=== PATIENT | male | born 1940 | race Caucasian/White ===

== ENCOUNTER 2017-05-04 11:12 | Day surgery (SDC) | payer MEDICARE, OTHER ==
[~2017-05-04] VITALS: Ht 172.7 cm; Wt 78.4 kg
[~2017-05-04 11:12] MED LIST: AEROBID INHALER7 GM IH; ALBUTEROL0.09 MG/A1 IH; ASMANEX TW0.22 MG/A1 IH; ASTELIN NASAL S34 ML NS; CIPRO 250MG TA250 MG PO; CLINDAMYCIN HC300 MG PO; DIFLUCAN PO; DOXYCYCLINE 10100 MG PO; DUONEB 3 MG/3 ML3 ML IH; IBUPROFEN 200200 MG PO; IBUPROFEN200 MG PO; IPRATROPIUM BROM3 M1 IH; KLONOPIN 0.5MG0.5 MG PO; LUTEIN PO; MVI; NASONEX SPRAY NS; NASONEX SPRAY17 GM NS; NATURE'S BLE1000 MCG PO; ONE DAILY1 TA1 PO; OXYGEN; PRILOSEC 20MG20 MG PO; RELION VEN0.09 MG/Ac IH; SEREVENT INH; SPIRIVA HANDIH18 MCG IH; THEOCAP200 MG PO; VITAMIN C1 TAB PO; VITAMIN E800 I1 PO; ZANTAC 7575 MG PO; ZESTRIL 10MG10 MG PO; ZITHROMAX 250M250 MG PO; ZOCOR40 MG PO; ZYRTEC 10MG10 MG PO; ZYRTEC ALLERGY10 MG PO; [UNRECOGNIZED DRUG - OTHER] INH; astelin; lutein
[2017-05-04] MEDS ORDERED: STIOLTO RESPIMAT4 GM IH (12:10)
[2017-05-04] MEDS ORDERED: IPRATROPIUM BROM3 M1 IH (12:14)
[2017-05-04] MEDS ORDERED: ZOCOR 40MG40 MG PO (12:17)
[2017-05-04] MEDS ORDERED: ALBUTEROL SULFAT3 M3 IH (12:19)
[2017-05-04] MEDS ORDERED: IBU600 MG PO (12:19)
[2017-05-04] MEDS ORDERED: PRILOSEC 20MG20 MG PO (12:20)
[2017-05-04] MEDS ORDERED: THEO-DUR 2200 MG/TAB PO (12:22)
[2017-05-04] MEDS ORDERED: ZYRTEC 10MG10 MG PO (12:22)
[2017-05-04] MEDS ORDERED: ZESTRIL 10MG10 MG PO (12:24)
[2017-05-04] MEDS ORDERED: ZITHROMAX 250M250 MG PO (12:24)
[2017-05-04] MEDS ORDERED: ASMANEX TW110 MCG/Ac IH (12:30)
[2017-05-04] MEDS ORDERED: KLONOPIN 0.5MG0.5 MG PO (12:31)
[2017-05-04] MEDS ORDERED: WELLBUTRIN 75MG75 MG PO (12:33)
[2017-05-04] MEDS ORDERED: XALATAN EYE DROPS OU (12:34)
[2017-05-04] MEDS ORDERED: ONE DAILY1 TA1 PO (12:34)
[2017-05-04] MEDS ORDERED: LUTEIN6 MG (12:35)
[2017-05-04] MEDS ORDERED: NATURE'S BLE1000 MCG PO (12:36)
[2017-05-04 13:01] VITALS: BP 112/81; PULSE 67; TEMP 97.5
[2017-05-04 13:15] VITALS: BP 117/55; PULSE 77; TEMP 97.3
[2017-05-04 13:30] VITALS: BP 127/65; PULSE 76
[2017-05-04 13:45] VITALS: BP 125/70; PULSE 76
[2017-05-04 14:00] VITALS: BP 101/62; PULSE 91
[2017-05-04 17:09] VITALS: BP 152/109; PULSE 73
== END 2017-05-04 14:31 | disposition home or self-care (01) ==
LOC: SDCO 11:12
DX: J18.9 Pneumonia, unspecified organism (principal); J44.1 Chronic obstructive pulmonary disease with (acute) exacerbation; G47.33 Obstructive sleep apnea (adult) (pediatric); I10 Essential (primary) hypertension; K21.9 Gastro-esophageal reflux disease without esophagitis; Z87.09 Personal history of other diseases of the respiratory system; Z87.891 Personal history of nicotine dependence
CPT/HCPCS: J0456; J2704; J2920; J7050; J7120

== ENCOUNTER → 2019-02-15 | Outpatient (CLI) | payer MEDICARE, OTHER ==
[~2019-02-15] MED LIST changes: +ALBUTEROL SULFAT3 M3 IH; +ASMANEX TW110 MCG/Ac IH; +IBU600 MG PO; +LUTEIN6 MG; +STIOLTO RESPIMAT4 GM IH; +THEO-DUR 2200 MG/TAB PO; +WELLBUTRIN 75MG75 MG PO; +XALATAN EYE DROPS OU; +ZOCOR 40MG40 MG PO
== END ==
LOC: COL.VAS 08:29
DX: I65.23 Occlusion and stenosis of bilateral carotid arteries (principal); N18.3 Chronic kidney disease, stage 3 (moderate)

== ENCOUNTER 2020-07-25 07:30 | Observation (INO) | payer MEDICARE, OTHER ==
[~2020-07-25] VITALS: Wt 77.3 kg
[~2020-07-25 07:30] MED LIST changes: -WELLBUTRIN 75MG75 MG PO; +WELLBUTRIN SR150 M1 PO
--- NOTE | 2020-07-25 19:00 | NUR ---
PATIENT ADMITTED TO ROOM 348 VIA EMS.
[2020-07-25 19:11] VITALS: BP 122/59; PULSE 109; TEMP 97.8
[2020-07-25] MEDS ORDERED: ELIQUIS 2.5 PO (20:44)
[2020-07-25] MEDS ORDERED: TYLENOL 500MG500 MG PO (20:45)
[2020-07-25] MEDS ORDERED: ATIVAN 0.50.5 MG/TAB PO (20:47)
[2020-07-25] MEDS ORDERED: CARDIZEM CD 12120 MG PO (20:49)
[2020-07-25] MEDS ORDERED: ATROVENT NASAL15 ML NS (20:50)
[2020-07-25] MEDS ORDERED: MULTAQ400 MG PO (20:51)
[2020-07-25] MEDS ORDERED: DALIRESP500 MCG PO (20:52)
[2020-07-25] MEDS ORDERED: FLOMAX 0.40.4 MG/CAP PO (20:55)
[2020-07-25] MEDS ORDERED: TRELEGY ELLIPT1 EACH IH (20:55)
[2020-07-25] MEDS ORDERED: VELTASSA8.4 GM PO (20:57)
[2020-07-25] MEDS ORDERED: ZOCOR 10MG10 MG PO (20:57)
[2020-07-25 23:45] VITALS: BP 115/53; PULSE 92; TEMP 97.6
[2020-07-26] VITALS (10 sets, daily range): BP systolic 134–166; BP diastolic 52–77; PULSE 65–104; TEMP 97.4–98.7
--- NOTE | 2020-07-26 00:30 | NUR ---
PATIENT RESTING QUIETLY WITH NO REPORTED C/O. BED ALARM ON AT THIS TIME, WILL REASSESS FALL RISK AGAIN PRIOR TO DAY SHIFT.
--- NOTE | 2020-07-26 03:56 | NUR ---
PATIENT ARRIVED TO ROOM 343 VIA EMS CART WALKED FROM EMS CART TO HOSPITAL BED WITH NO PROBLEMS. IVF TO LAC INFUSING WITH NO PROBLEMS, REPORTS HAS DRY MOUTH. REPORTS HAS BEEN TOLERATING DILAUDID.
--- NOTE | 2020-07-26 06:50 | NUR ---
PATIENT TO OR PER BED, O2 CONTINUES PER NC. PATIENT WITH NO C/O
--- NOTE | 2020-07-26 08:34 | NUR ---
Patient returns from procedure at this time.
--- NOTE | 2020-07-26 09:30 | NUR ---
Patient alert and oriented, answers questions appropriately. See assessment. No c/o urinary burning, frequency or hesitancy. No other c/o at this time.
--- NOTE | 2020-07-26 09:37 | NUR ---
SW met with the patient to discuss discharge plan. The patient lives alone in [place]. He states that his son, Kar (ph#[phone]), [place]. He reports independence with ADLs and does not have any assistive devices. He has continuous home oxygen from [employer]. The patient's PCP is Dr. Chralie Dhaliwal and he receives his medications through [facility] [facility]. He reports no difficulties obtaining his meds. The patient does not have advanced directives in EMR, but he states that he does have a DPOA-HC completed and that the forms are at home. He states that his son, Kar, is his DPOA-HC. He states that he has one other child, but does not know where that child is at. The patient plans to return home upon discharge, with Kar providing transportation. No additional needs at this time.
--- NOTE | 2020-07-26 15:26 | NUR ---
Discharge instructions reviewed with patient, verbalized understanding. Discharged via wheelchair to auto/home with family at 1415.
== END 2020-07-26 14:15 | disposition home or self-care (01) ==
LOC: SURG 07:30 → EDSTATUS 07:30 → SURG 19:00
PROVIDERS: ADMIT Urology
DX: R10.9 Unspecified abdominal pain (principal); I12.9 Hypertensive chronic kidney disease with stage 1 through stage 4 chronic kidney disease, or unspecified chronic kidney disease; N18.9 Chronic kidney disease, unspecified; E78.5 Hyperlipidemia, unspecified; J44.9 Chronic obstructive pulmonary disease, unspecified; G89.29 Other chronic pain; K21.9 Gastro-esophageal reflux disease without esophagitis; M51.36 Other intervertebral disc degeneration, lumbar region; M47.9 Spondylosis, unspecified; M48.02 Spinal stenosis, cervical region; Z87.442 Personal history of urinary calculi; Z88.1 Allergy status to other antibiotic agents; Z88.0 Allergy status to penicillin; Z79.01 Long term (current) use of anticoagulants; Z79.899 Other long term (current) drug therapy; Z98.52 Vasectomy status; Z90.49 Acquired absence of other specified parts of digestive tract
CPT/HCPCS: C1769; C2617; G0378; J0690; J1885; J2704; J3010; J7030; Q9967

== ENCOUNTER 2020-11-08 18:30 | Inpatient (IN) | payer MEDICARE, OTHER ==
[~2020-11-08] VITALS: Ht 172.7 cm; Wt 81.6 kg
[~2020-11-08 18:30] MED LIST changes: +ATIVAN 0.50.5 MG/TAB PO; +ATROVENT NASAL15 ML NS; +CARDIZEM CD 12120 MG PO; +DALIRESP500 MCG PO; +ELIQUIS 2.5 PO; +FLOMAX 0.40.4 MG/CAP PO; +MULTAQ400 MG PO; +TRELEGY ELLIPT1 EACH IH; +TYLENOL 500MG500 MG PO; +VELTASSA8.4 GM PO; +ZOCOR 10MG10 MG PO
[2020-11-08 18:56] LABS: BASO % 0.2 % (0.0-2.0); GRAN % 82.3 % (42.2-75.2); HEMATOCRIT 47.8 % (42.0-52.0); HEMOGLOBIN 15.6 g/dl (13.5-18.0); LYMPH # 0.9 (1.2-3.4); LYMPH % 9.1 % (20.0-51.0); MEAN CELL VOLUME 94 fl (80.0-100.0); MEAN CORPUSCULAR HEMOGLOBIN 31 pg (27.0-31.0); MEAN CORPUSCULAR HGB CONC 33 g/dl (33.0-37.0); MEAN PLATELET VOLUME 9.7 fl (7.4-10.4); MONO # 0.8 (0.1-0.6); PLATELET COUNT 136 K/mm3 (130-400); RED BLOOD COUNT 5.07 M/mm3 (4.20-5.60); REDCELL DISTRIBUTION WIDTH-CV 13.5 % (11.5-14.5)
[2020-11-08 18:57] LABS: INR 1.2 (0.8-3.0); PROTHROMBIN TIME 13.1 SECONDS (9.7-12.8)
[2020-11-08 19:14] LABS: ALBUMIN 3.9 gm/dL (3.5-5.0); BILIRUBIN,TOTAL 0.6 mg/dL (0.0-1.0); CALCIUM 8.6 mg/dL (8.4-10.2); CREATININE, serum 2.28 (0.66-1.25); POTASSIUM 5.2 mmol/L (3.4-5.0); TOTAL PROTEIN 7.4 gm/dL (6.4-8.2)
[2020-11-08 19:41] LABS: TROPONIN-I 0.092 ng/mL (0.000-0.035)
[2020-11-08 20:00] LABS: COLLECTION METHOD CLEAN CATCH
[2020-11-08 20:12] LABS: MUCOUS Present /lpf; PH 5 (5-8); SQUAMOUS EPITHELIAL None Seen /hpf; URINE APPEARANCE Cloudy; URINE BACTERIA Rare /hpf; URINE BILIRUBIN Negative (NEGATIVE); URINE BLOOD 2+ (NEGATIVE); URINE COLOR Amber; URINE GLUCOSE Negative (NEGATIVE); URINE KETONE 1+ (NEGATIVE); URINE LEUKOCYTE ESTERASE Negative (NEGATIVE); URINE NITRATE Negative (NEGATIVE); URINE PROTEIN(semi-quant) 3+ (NEGATIVE); URINE RBC 0-2 /hpf; URINE UROBILINOGEN Negative (NEGATIVE)
--- NOTE | 2020-11-08 21:00 | NUR ---
REPORT RECEIVED FROM NORMAN LU.
[2020-11-08] MEDS ORDERED: ZESTRIL 10MG10 MG PO (21:14)
[2020-11-08] MEDS ORDERED: ASMANEX TW110 MCG/Ac IH (21:18)
--- NOTE | 2020-11-08 21:50 | NUR ---
PT ARRIVED IN UNIT VIA STRETCHER, ALERT AND ORIENTED X 4, ON AIRVO 60L AND 75% FIO2. PT'S VSS. DENIES ANY PAIN AND VERBALIZED THAT BREATHING IS BETTER. PT CONFIRMED HE IS A FULL CODE WITH THIS RN AND CHARGE NURSE LEYDI. CALL LIGHT WITHIN REACH.
[2020-11-08 21:51] VITALS: BP 123/82; PULSE 109; TEMP 99.8
[2020-11-08 21:53] VITALS: O2SAT 93
--- NOTE | 2020-11-08 22:40 | NUR ---
RECEIVED PT FROM ED WITH THIS RATE.
[2020-11-08 23:14] LABS: ARTERIAL BLD GAS O2 SATURATION 92.6 % (92-100); ARTERIAL BLD GAS TCO2 CT 18.5; ARTERIAL BLOOD GAS BASE EXCESS -6.8 (-2-2); ARTERIAL BLOOD GAS HCO3 17.5 meq/L (22-26); ARTERIAL BLOOD GAS PCO2 31.9 mmHg (35-45); ARTERIAL BLOOD GAS PO2 65.8 mmHg (80-100); ARTERIAL BLOOD GAS pH 7.36 (7.35-7.45)
--- NOTE | 2020-11-08 23:52 | NUR ---
TALKED TO PHARMACIST MARY ABOUT ELIQUIS, DR. SERENITY ALVAREZ GIVING 5 MG TONIGHT AND WILL RE-EVALUATE DARIUS WITH DAY SHIFT MD. ALSO, REMDESIVIR NOT AVAILABLE AT THIS TIME AND WILL BE GIVEN DARIUS.
[2020-11-08 23:59] VITALS: O2SAT 92
[2020-11-09] VITALS (1290 sets, daily range): BP systolic 98–121; BP diastolic 65–77; PULSE 89–107; TEMP 97.7–99.1; O2SAT 78–98
--- NOTE | 2020-11-09 00:06 | NUR ---
TROPONIN OF 0.113 RESULTED. REBECCA RAYA ALREADY GAVE A VERBAL ORDER EARLIER TO REPEAT TROPONIN 3 HOUR IF IT GOES UP. WILL PUT ORDER IN.
[2020-11-09 03:59] LABS: HEMATOCRIT 44.2 % (42.0-52.0); HEMOGLOBIN 14.6 g/dl (13.5-18.0); MEAN CELL VOLUME 94 fl (80.0-100.0); MEAN CORPUSCULAR HEMOGLOBIN 31 pg (27.0-31.0); MEAN CORPUSCULAR HGB CONC 33 g/dl (33.0-37.0); MEAN PLATELET VOLUME 9.4 fl (7.4-10.4); PLATELET COUNT 107 K/mm3 (130-400); RED BLOOD COUNT 4.71 M/mm3 (4.20-5.60); REDCELL DISTRIBUTION WIDTH-CV 13.4 % (11.5-14.5)
[2020-11-09 04:04] LABS: CALCIUM 8.1 mg/dL (8.4-10.2); CREATININE, serum 1.94 (0.66-1.25); POTASSIUM 5.2 mmol/L (3.4-5.0)
[2020-11-09 04:20] LABS: TROPONIN-I 0.101 ng/mL (0.000-0.035)
--- NOTE | 2020-11-09 04:24 | NUR ---
TROPONIN OF 0.101, AND PER PREVIOUS CONVERSATION WITH DR. ACOSTA, NO NEED TO RE-CHECK ANYMORE IF TRENDED DOWN. WILL PASS THIS ALONG IN REPORT WITH DAY SHIFT NURSE.
[2020-11-09 04:27] LABS: BAND 4 % (0-10); LYMPHOCYTE 2 % (20.0-51.0); NEUTROPHILS 90 % (42.0-75.2)
[2020-11-09 04:28] LABS: PLATELET ESTIMATE DECREASED (NORMAL)
--- NOTE | 2020-11-09 07:13 | NUR ---
DR. DE LEON NOTIFIED OF CONSULT. AWARE.
--- NOTE | 2020-11-09 07:16 | NUR ---
REPORT GIVEN TO NORMAN GLASER.
--- NOTE | 2020-11-09 19:00 | NUR ---
PT IS LAYING IN BED AT THIS TIME. REPORT RCVD FROM NORMAN GLASER.
--- NOTE | 2020-11-09 21:47 | NUR ---
PT DEOXYGENATING TO 83%. CONTACTED SRIRAM RT TO COME ASSESS. BIPAP PLACED ON PT AT 2145. PT NOW SATURATING 91%.
[2020-11-10] VITALS (1414 sets, daily range): BP systolic 98–132; BP diastolic 62–87; PULSE 95–126; TEMP 96.9–98.4; O2SAT 75–99
[2020-11-10 05:54] LABS: HEMOGLOBIN 13.6 g/dl (13.5-18.0); MEAN CELL VOLUME 95 fl (80.0-100.0); MEAN CORPUSCULAR HEMOGLOBIN 31 pg (27.0-31.0); MEAN CORPUSCULAR HGB CONC 32 g/dl (33.0-37.0); MEAN PLATELET VOLUME 10.7 fl (7.4-10.4); PLATELET COUNT 134 K/mm3 (130-400); RED BLOOD COUNT 4.44 M/mm3 (4.20-5.60); REDCELL DISTRIBUTION WIDTH-CV 13.7 % (11.5-14.5)
[2020-11-10 06:06] LABS: ALBUMIN 2.9 gm/dL (3.5-5.0); BILIRUBIN,TOTAL 0.3 mg/dL (0.0-1.0); CALCIUM 7.9 mg/dL (8.4-10.2); CREATININE, serum 1.98 (0.66-1.25); POTASSIUM 4.6 mmol/L (3.4-5.0); TOTAL PROTEIN 5.8 gm/dL (6.4-8.2)
--- NOTE | 2020-11-10 06:34 | NUR ---
Pt had uneventful night. Pt did have some anxiety regarding intubation due to a conversation had by RT at the beginning of the shift. When the patient was put on bipap, the respiratory therapist explained that this is the last step we can take before needing to intubate. The remainder of the night the patient was very concerned with where his oxygen levels were at. The patient remained on 10ml/hr of the cardizem drip, and the 100ml/hr of NS. During this last concact, this rn changed the patient's jason pad, and put on some barrier cream d/t some severe reddness and excoriation between the buttocks. There are no further concerns at this time. Will endorse to day shift RN.
--- NOTE | 2020-11-10 08:00 | NUR ---
Report recieved from NORMAN Alvarez
[2020-11-10 08:19] LABS: BAND 5 % (0-10); LYMPHOCYTE 2 % (20.0-51.0); NEUTROPHILS 92 % (42.0-75.2); PLATELET ESTIMATE NORMAL (NORMAL)
--- NOTE | 2020-11-10 12:00 | NUR ---
SW attempted contact with patients brooke Morales at , no answer, Will attempt again.
--- NOTE | 2020-11-10 13:54 | NUR ---
PT RESTING IN BED, REMAINS ON 100% FIO2 ON BI-PAP WITH SPO2 93%, DENIES PAIN OR DOA. ABLE TO DRINK HIS ENSURE TODAY AND CAN TOLERATE SIPS OF WATER WITH OUT DESATTING TO LOW-88%. PT REMAIN IN AF OND CARDIZEN AT 15MG/HR WITH HR 90'S-110'S WITH PERIODIC BURSTS OF 130-140'S AND DR. DE LEON WAS MAD AWARE WHEN SHE CAME TO SEE PT THIS AM. WILL CONTINUE TO MONITOR PT STATUS. AND CONTINUE TO UPDATE PROVIDERS NEEDED.
--- NOTE | 2020-11-10 14:25 | NUR ---
PT PLACED ON RA SPO2-96%, REPORT GIVEN TO NORMAN OCHOA. PT WILL BE TX TO 323.
--- NOTE | 2020-11-10 16:56 | NUR ---
DR. DE LEON WAS CALLED TO UPDATE HER ON PT'S INCREASED DILT GGT RATE AND CURRENT HR DEPITE INCREASE. SHE REOPORTED THAT SHE WANTS CONTINUE THE COURSE AND IF PT INCREASES TO HR OF 130'S-140'S AND SUSTAINS, CARDIOLOGY SHOULD BE CALLED FOR ORDERS. WILL PASS ON INFO IN EVENING REPORT.
--- NOTE | 2020-11-10 19:25 | NUR ---
Received report from NORMAN Baltazar.
--- NOTE | 2020-11-10 20:00 | NUR ---
Patient resting quietly in bed. Continues to wear BiPap at 15/10 with FiO2 of 100%. Tolerating well, although saturation ranges from 88-91%. Patient does not appear labored or uncomfortable. Quickly desats with removal of mask for eating/drinking. HR ranging 100-120s in afib; continues to receive cardizem at 15 mg/hr. Denies further needs at this time. Will continue to monitor.
--- NOTE | 2020-11-10 23:30 | NUR ---
Updated Alea hospitalist, of patient's increased BiPap settings. At this time, settings are 15/12 with FiO2 of 100%. Patient satting high 80s to low 90s. Clarified O2 goal of at least 90%. Will obtain ABG in the AM and continue to monitor.
[2020-11-11] VITALS (975 sets, daily range): BP systolic 100–141; BP diastolic 54–81; PULSE 85–143; TEMP 97.3–98.5; O2SAT 57–96
[2020-11-11 05:50] LABS: ARTERIAL BLD GAS O2 SATURATION 91.2 % (92-100); ARTERIAL BLD GAS TCO2 CT 14.5; ARTERIAL BLOOD GAS BASE EXCESS -13.6 (-2-2); ARTERIAL BLOOD GAS HCO3 13.4 meq/L (22-26); ARTERIAL BLOOD GAS PCO2 35.3 mmHg (35-45); ARTERIAL BLOOD GAS PO2 70.8 mmHg (80-100)
[2020-11-11 06:16] LABS: HEMATOCRIT 39.6 % (42.0-52.0); HEMOGLOBIN 12.7 g/dl (13.5-18.0); MEAN CELL VOLUME 94 fl (80.0-100.0); MEAN CORPUSCULAR HEMOGLOBIN 30 pg (27.0-31.0); MEAN CORPUSCULAR HGB CONC 32 g/dl (33.0-37.0); MEAN PLATELET VOLUME 10.1 fl (7.4-10.4); PLATELET COUNT 170 K/mm3 (130-400); REDCELL DISTRIBUTION WIDTH-CV 14.1 % (11.5-14.5)
[2020-11-11 06:27] LABS: CALCIUM 7.8 mg/dL (8.4-10.2); CREATININE, serum 2.49 (0.66-1.25); POTASSIUM 4.8 mmol/L (3.4-5.0)
[2020-11-11 07:10] LABS: BAND 14 % (0-10); LYMPHOCYTE 1 % (20.0-51.0); METAMYELOCYTE 1 % (0-0); NEUTROPHILS 81 % (42.0-75.2); PLATELET ESTIMATE NORMAL (NORMAL)
--- NOTE | 2020-11-11 07:10 | NUR ---
RECEIVED REPORT FROM NORMAN LYN. PT RESTING EASILY ON BIPAP 15/12 FIO2 100%. URINAL AND CALL LIGHT WITHIN REACH. SEE GTT FLOWSHEET. NOTED HR AFIB 110-120s. POX 88-92% AT THIS TIME.
--- NOTE | 2020-11-11 09:00 | NUR ---
SPOKE WITH DR DE LEON ABOUT PT'S HR STAYING 120 AND IS CURRENTLY 150s. NEW ORDERS RECEIVED.
--- NOTE | 2020-11-11 10:15 | NUR ---
DISCUSSED PT'S CURRENT BIPAP SETTINGS, LABS, INFORMATION ASSURANCE ANALYST CHANGES TO ADD AMIO GTT THIS AM, ABG THIS AM, AND POC WITH DR ACOSTA AND DR AHMADI. NEW ORDERS RECEIVED.
--- NOTE | 2020-11-11 10:20 | NUR ---
DR ACOSTA STATES TO RUN BICARB GTT ATT 100ML/HR AND DECREASE NS TO 50ML/HR WHILE IT IS GOING. THEN WHEN BICARB IS DONE TO INCREASE NS BACK TO 100ML/HR.
--- NOTE | 2020-11-11 10:25 | NUR ---
SW update: Made contact with son Kar at [phone]. Son indicated that the patient resides in [facility] independently. Son reports that he or his will check in on the patient from time to time.Son indicated that the next contact is his Elisa and his DTR Alea . Son indicated that the patient is on 4 liters of oxygen through [employer]. PCP is Dr. Weldon but has other specialist for his lungs, heart, and other medical issues. Patient has a Dr. through [facility] and obtains medcations from [facility]. Patient is reports that have been independent with ADLS and driving. Does not have any other DME use for mobility or chcf. Son indicated that he can not find the DPOA ppw but believes that it is him. Son indicated that he understand at this time the potential for additional supports and wants to keep posted.
--- NOTE | 2020-11-11 10:30 | NUR ---
DR ELDER TO BEDSIDE FOR ASSESSMENT. NEW ORDERS RECEIVED.
--- NOTE | 2020-11-11 19:52 | NUR ---
Received report from NORMAN Bautista. All medications verified and all questions answered. Patient sleeping in bed. All VS WNL. Will resume care at this time.
--- NOTE | 2020-11-11 22:17 | NUR ---
Spoke with SURJIT Cosby in regards to patient becoming increasingly anxious. Patient began pulling on PICC lines to "try and see where they are going" and is pulling on Bipap masks and quickly desats into the 70s and becomes tachycardic in the 130s. Patient stated he is very anxious and would like someone to sit in room with him throughout the night to keep him calm. Received orders to restart buproprion and PRN ativan.
[2020-11-11 22:39] LABS: ARTERIAL BLD GAS O2 SATURATION 92.6 % (92-100); ARTERIAL BLD GAS TCO2 CT 20.7; ARTERIAL BLOOD GAS BASE EXCESS -8.1 (-2-2); ARTERIAL BLOOD GAS HCO3 19.3 meq/L (22-26); ARTERIAL BLOOD GAS PCO2 47.3 mmHg (35-45); ARTERIAL BLOOD GAS PO2 67.2 mmHg (80-100); ARTERIAL BLOOD GAS pH 7.23 (7.35-7.45)
--- NOTE | 2020-11-11 23:00 | NUR ---
Spoke with SURJIT Cosby and gave update on patient status. Asked if she could lay eyes on patient to assess for increased work of breathing. Alea stated to call jennifer and relay patient status to make sure they are aware of the situation and can keep eyes on the patient. Will continue to monitor at this time.
--- NOTE | 2020-11-11 23:23 | NUR ---
Spoke with Dr. Saleh from [facility]. Gave update on patient status in regards to increased work of breathing, general appearance and recent ABG levels. O2 levels have not risen above 92% with Bipap levels increased to a peep of 12 at 100% Fio2. Resident received 1mg IV push of Ativan and has seemed to relax more but continue to try and take off bipap. HR has been in the 70-80s. Dr. Saleh stated to continue to watch patient and call back if patient began to sat at 85% to reevaluate.
[2020-11-12] VITALS (820 sets, daily range): BP systolic 93–117; BP diastolic 47–89; PULSE 70–115; TEMP 97.7–98.8; O2SAT 77–100
--- NOTE | 2020-11-12 01:55 | NUR ---
Hood catheter in place to help with patient incontinence and to help improve accurate I&O's. Patient compliant with care and tolerated well.
[2020-11-12 04:28] LABS: HEMOGLOBIN 10.9 g/dl (13.5-18.0); MEAN CELL VOLUME 95 fl (80.0-100.0); MEAN CORPUSCULAR HEMOGLOBIN 31 pg (27.0-31.0); MEAN CORPUSCULAR HGB CONC 32 g/dl (33.0-37.0); MEAN PLATELET VOLUME 10.7 fl (7.4-10.4); PLATELET COUNT 156 K/mm3 (130-400); RED BLOOD COUNT 3.55 M/mm3 (4.20-5.60); REDCELL DISTRIBUTION WIDTH-CV 14.4 % (11.5-14.5)
[2020-11-12 04:32] LABS: HEMATOCRIT 33.8 % (42.0-52.0)
[2020-11-12 04:33] LABS: CALCIUM 7.4 mg/dL (8.4-10.2); CREATININE, serum 2.95 (0.66-1.25); POTASSIUM 4.7 mmol/L (3.4-5.0)
[2020-11-12 04:34] LABS: URINE PROTEIN:CREAT RATIO 0.36 (0.00-0.14)
[2020-11-12 04:34] LABS: ARTERIAL BLD GAS O2 SATURATION 94.5 % (92-100); ARTERIAL BLD GAS TCO2 CT 21.6; ARTERIAL BLOOD GAS BASE EXCESS -6.7 (-2-2); ARTERIAL BLOOD GAS HCO3 20.2 meq/L (22-26); ARTERIAL BLOOD GAS PO2 69.1 mmHg (80-100); ARTERIAL BLOOD GAS pH 7.26 (7.35-7.45)
[2020-11-12 04:52] LABS: BAND 3 % (0-10); LYMPHOCYTE 3 % (20.0-51.0); NEUTROPHILS 88 % (42.0-75.2); PLATELET ESTIMATE NORMAL (NORMAL)
--- NOTE | 2020-11-12 04:58 | NUR ---
Performed bladder scan on patient and had highest reading of 66mls retention. Spoke with Dr. Uribe with [facility] and relayed information from bladder scan and that patient has a history of BPH, a liberty catheter was put in place and that the patient has had decreased urine output throughout the day. No new orders at this time. Will continue to monitor.
--- NOTE | 2020-11-12 05:36 | NUR ---
Received faxed order from Dr. Uribe to give patient 500ml LR bolus r/t decreased UOP.
--- NOTE | 2020-11-12 13:00 | NUR ---
Attempted to prone patient per Dr. Duval orders. Patient currently maxed on bipap. Patient placed in prone position and began to cough up copious amounts of bloody secretions for several minutes. Patient did not tolerate this position. Patient was placed back in supine position and states that he feels much better supine.
--- NOTE | 2020-11-12 17:30 | NUR ---
Patient will be given ativan because he is consistently restless and pulling at bipap. i ask him if he is nervous and anxious, he nods his head.
[2020-11-13] VITALS (855 sets, daily range): BP systolic 73–116; BP diastolic 40–87; PULSE 104–137; TEMP 97–97.5; O2SAT 41–100
--- NOTE | 2020-11-13 01:02 | NUR ---
Patient became confused and pulled off bipap and began pulling monitor cords off. Nurse attempted to redirect but was unable to get patient to stop pulling at lines and masks. 1mg of ativan administered
[2020-11-13 05:42] LABS: HEMOGLOBIN 10.3 g/dl (13.5-18.0); MEAN CELL VOLUME 94 fl (80.0-100.0); MEAN CORPUSCULAR HEMOGLOBIN 31 pg (27.0-31.0); MEAN CORPUSCULAR HGB CONC 33 g/dl (33.0-37.0); MEAN PLATELET VOLUME 10.4 fl (7.4-10.4); PLATELET COUNT 151 K/mm3 (130-400); RED BLOOD COUNT 3.36 M/mm3 (4.20-5.60); REDCELL DISTRIBUTION WIDTH-CV 14.4 % (11.5-14.5)
[2020-11-13 05:47] LABS: HEMATOCRIT 31.6 % (42.0-52.0)
[2020-11-13 05:48] LABS: CALCIUM 7.9 mg/dL (8.4-10.2); CREATININE, serum 3.53 (0.66-1.25)
[2020-11-13 06:00] LABS: ARTERIAL BLD GAS O2 SATURATION 81.7 % (92-100); ARTERIAL BLD GAS TCO2 CT 18.6; ARTERIAL BLOOD GAS BASE EXCESS -10.2 (-2-2); ARTERIAL BLOOD GAS HCO3 17.2 meq/L (22-26); ARTERIAL BLOOD GAS pH 7.21 (7.35-7.45)
[2020-11-13 06:05] LABS: ARTERIAL BLOOD GAS PO2 47.9 mmHg (80-100)
[2020-11-13 06:22] LABS: BAND 1 % (0-10); LYMPHOCYTE 1 % (20.0-51.0); NEUTROPHILS 96 % (42.0-75.2)
[2020-11-13 06:23] LABS: HYPOCHROMIA 1+; PLATELET ESTIMATE NORMAL (NORMAL)
--- NOTE | 2020-11-13 09:30 | NUR ---
Time line of events At approximately 0710, Dr. Duval called d/t patient having low SPO2 of 70s% on the bipap. ABG results communicated and order received to intubate. Anesthesia paged and notified. 0748 Patient intubated by Gelacio Duong CRNA with assistance of Tierra, SARAH and myself. 0805 Sedation started, Art line inserted 0815 vasopressors started d/t hypotension 0845 eICU contacted d/t persistent hypotension and low SPO2 0850 orders received to give sodium bicarb x2 for hypotension. see eMAR 0925 Amiodarone gtt started per cardiology order.
[2020-11-13 09:34] LABS: PROTHROMBIN TIME 22.3 SECONDS (9.7-12.8)
[2020-11-13 09:36] LABS: PARTIAL THROMBOPLASTIN TIME 26.3 SECONDS (26.0-37.0)
[2020-11-13 09:53] LABS: ARTERIAL BLD GAS O2 SATURATION 92.9 % (92-100); ARTERIAL BLD GAS TCO2 CT 23.4; ARTERIAL BLOOD GAS BASE EXCESS -9.3 (-2-2); ARTERIAL BLOOD GAS HCO3 21.2 meq/L (22-26); ARTERIAL BLOOD GAS PO2 76.4 mmHg (80-100)
[2020-11-13 09:54] LABS: ARTERIAL BLOOD GAS pH 7.09 (7.35-7.45)
[2020-11-13 09:55] LABS: ARTERIAL BLOOD GAS PCO2 72.1 mmHg (35-45)
--- NOTE | 2020-11-13 10:01 | NUR ---
The patient was intubated this morning and made a DNR. HENOK contacted the patient's son, Kar, to update and confirm next of kin. Kar states that the patient has another son, Jon Vásquez, that lives in [place]. The patient and Kar have not been in contact with Jon Burnett in twenty so years and do not know his contact information. HENOK contacted the [facility] to inquire if they have a DPOA-HC for the patient. The patient is on the Blue team and his provider is Ms. Miller. The Blue Team transferred SW to medical records for the DPOA-HC. HENOK left them a voicemail.
--- NOTE | 2020-11-13 11:15 | NUR ---
Patient BP consistently low at 70/30s. Dr. Duval asked again for order for epinephrine gtt and this time it was received. Epi gtt started. Levophed and Vasopressin at max doses.
--- NOTE | 2020-11-13 12:00 | NUR ---
Son, Kar, here to see patient. They request comfort measures after the granddaughter comes to see patient in a little while. Dr. Duval speaks with family and Dr. Xiong is present as well.
--- NOTE | 2020-11-13 13:15 | NUR ---
Granddaughter here to see patient
--- NOTE | 2020-11-13 14:46 | NUR ---
Family requested to proceed with comfort measures upon their departure. Patient given ativan and morphine at 1408. Patient extubated at 1409 and ultimately at 1425. Son, Kar, notified of passing. Dr. Xiong notified of passing and Dr. Duval aware of passing as he was on the unit at the time.
--- NOTE | 2020-11-13 17:00 | NUR ---
PATIENT RECEIVED BY [facility].
== END 2020-11-13 17:00 | disposition expired | DRG 208 ==
LOC: COL.ER 18:30 → ICU 20:42
PROVIDERS: Family Medicine; Internal Medicine Critical Care Medicine; Internal Medicine Nephrology; Internal Medicine Pulmonary Disease; Physician Assistant; ADMIT Student in an Organized Health Care Education/Training Program
PROC: XW033E5 Introduction of Remdesivir Anti-infective into Peripheral Vein, Percutaneous Approach, New Technology Group 5 (ICD-10-PCS; principal; 2020-11-09)
PROC: 02HV33Z Insertion of Infusion Device into Superior Vena Cava, Percutaneous Approach (ICD-10-PCS; 2020-11-11)
PROC: XW13325 Transfusion of Convalescent Plasma (Nonautologous) into Peripheral Vein, Percutaneous Approach, New Technology Group 5 (ICD-10-PCS; 2020-11-12)
PROC: 5A1935Z Respiratory Ventilation, Less than 24 Consecutive Hours (ICD-10-PCS; 2020-11-13)
PROC: 0BH17EZ Insertion of Endotracheal Airway into Trachea, Via Natural or Artificial Opening (ICD-10-PCS; 2020-11-13)
DX: U07.1 COVID-19 (principal); J80 Acute respiratory distress syndrome; I21.A1 Myocardial infarction type 2; J12.89 Other viral pneumonia; J44.1 Chronic obstructive pulmonary disease with (acute) exacerbation; E87.2 Acidosis; N17.9 Acute kidney failure, unspecified; Z66 Do not resuscitate; Z51.5 Encounter for palliative care; I48.91 Unspecified atrial fibrillation; I95.9 Hypotension, unspecified; R77.8 Other specified abnormalities of plasma proteins; E78.5 Hyperlipidemia, unspecified; N40.0 Benign prostatic hyperplasia without lower urinary tract symptoms; F32.9 Major depressive disorder, single episode, unspecified; N18.32 Chronic kidney disease, stage 3b; F41.9 Anxiety disorder, unspecified; Z88.0 Allergy status to penicillin; Z88.1 Allergy status to other antibiotic agents; Z79.01 Long term (current) use of anticoagulants; Z99.81 Dependence on supplemental oxygen; Z87.891 Personal history of nicotine dependence
CPT/HCPCS: 99223-AI; 99233-AI; C1751; C1892; J0171; J0282; J0330; J0456; J0692; J0696; J1100; J1940; J2060; J2270; J2704; J2930; J3010; J3370; J7030; J7050; J7060; J7070; J7120